=== PATIENT | female | born 1960 | race Caucasian/White ===

== ENCOUNTER → 2024-01-21 12:51 | Outpatient (REF) | payer BC, SELFPAY | LOC: WDC 12:51 | PROVIDERS: ATTENDING PHYSICIAN Internal Medicine; FAMILY PHYSICIAN Internal Medicine | DX: Z12.31 Encounter for screening mammogram for malignant neoplasm of breast (principal) | CPT/HCPCS: 77063; 77067 ==

== ENCOUNTER → 2025-07-24 09:44 | Outpatient (REF) | payer BC, SELFPAY | LOC: HWWDC 09:44 | PROVIDERS: ATTENDING PHYSICIAN Internal Medicine | DX: Z12.31 Encounter for screening mammogram for malignant neoplasm of breast (principal) | CPT/HCPCS: 77063; 77067 ==